=== PATIENT | male | born 1955 | race Caucasian/White ===

== ENCOUNTER 2018-09-14 05:21 | Inpatient (IN) | payer BC ==
[~2018-09-14] VITALS: Ht 182.9 cm; Wt 115.9 kg
[~2018-09-14 05:21] MED LIST: IBUP-1484 PO; LEVO175T5 PO; LISI1TAB7 PO; MULT-516 PO; VENL75TA PO
[2018-09-14] MEDS ORDERED: LACTATED RINGERS 1,000 ML IV SCH (05:58)
[2018-09-14 05:59] VITALS: BP 129/82
[2018-09-14] MEDS ORDERED: SUCCINYLCHOLINE 20 MG/ML, 10ML ONE (07:03)
[2018-09-14] MEDS ORDERED: MIDAZOLAM 1 MG/ML, 2ML ONE (07:03)
[2018-09-14] MEDS ORDERED: PROPOFOL 10 MG/ML, 20ML ONE ×2 (07:03)
[2018-09-14] MEDS ORDERED: FENTANYL PF 250 MCG/5ML ONE (07:03)
[2018-09-14] MEDS ORDERED: ROCURONIUM 10MG/ML,5ML ONE (07:03)
[2018-09-14] MEDS ORDERED: CEFAZOLIN 1,000 MG ONE ×2 (07:04)
[2018-09-14] MEDS ORDERED: PHENYLEPHRINE 10 MG/ML ONE (07:10)
[2018-09-14] MEDS ORDERED: EPHEDRINE 50 MG/ML, 1ML ONE (07:12)
[2018-09-14] MEDS ORDERED: THROMBIN 5,000 UNIT VIAL TP ONE (07:19)
[2018-09-14] MEDS ORDERED: BUPIVACAINE/PF 0.25% ONE (07:19)
[2018-09-14] MEDS ORDERED: LIDOCAINE 1%-EPI 1:100K, 30ML ONE (07:20)
[2018-09-14] MEDS ORDERED: VANCOMYCIN 1,000 MG ONE (07:20)
[2018-09-14] MEDS ORDERED: EPINEPHRINE 1 MG/ML, 1ML ONE (07:20)
[2018-09-14] MEDS ORDERED: LIDOCAINE/PF 0.5% ,50ML ONE (07:48)
[2018-09-14] MEDS ORDERED: GABAPENTIN 300 MG CAPSULE ONE (07:50)
[2018-09-14] MEDS ORDERED: FAMOTIDINE 20 MG TABLET ONE (07:50)
[2018-09-14] MEDS ORDERED: OXYcodone IR 5MG TABLET ONE (07:50)
[2018-09-14] MEDS ORDERED: ACETAMINOPHEN 500 MG TABLET ONE (07:50)
[2018-09-14] MEDS ORDERED: ACETAMINOPHEN 500 MG TABLET PO ONE (08:00)
[2018-09-14] MEDS ORDERED: GABAPENTIN 300 MG CAPSULE PO ONE (08:00)
[2018-09-14] MEDS ORDERED: OXYcodone IR 5MG TABLET PO ONE (08:00)
[2018-09-14] MEDS ORDERED: FAMOTIDINE 20 MG TABLET PO ONE (08:00)
[2018-09-14] MEDS ORDERED: DEXAMETHASONE 4 MG/ML, 1ML ONE ×2 (08:22)
[2018-09-14] MEDS ORDERED: HYDROmorphone 2 MG/ML, 1ML IVPush PRN (09:00)
[2018-09-14] MEDS ORDERED: FENTANYL PF 100 MCG/2ML IV PRN (09:00)
[2018-09-14] MEDS ORDERED: PROMETHAZINE 25 MG/ML, 1ML IV PRN (09:00)
[2018-09-14] MEDS ORDERED: OXYcodone 5 MG/5 ML ORAL.SOL UDC PO PRN (09:00)
[2018-09-14] MEDS ORDERED: MEPERIDINE/PF 25MG/0.5ML IVPush PRN (09:00)
[2018-09-14] MEDS ORDERED: GLYCOPYRROLATE 0.4 MG/2 ML, 2ML ONE (09:16)
[2018-09-14] MEDS ORDERED: FENTANYL PF 100 MCG/2ML ONE (10:17)
[2018-09-14] MEDS ORDERED: ONDANSETRON 2MG/ML, 2ML ONE (10:59)
[2018-09-14] MEDS ORDERED: NEOSTIGMINE 1 MG/ML, 10ML ONE (11:27)
[2018-09-14] MEDS ORDERED: METHOCARBAMOL 1,000 MG in DEXTROSE 5% 100 ML IV ONE (12:00)
[2018-09-14] MEDS ORDERED: PHARMACY MAY ADJ FOR RENAL FX MC PRN (12:00)
[2018-09-14] MEDS ORDERED: OXYcodone 5 MG/5 ML ORAL.SOL UDC ONE (12:40)
[2018-09-14 13:30] VITALS: BP 117/73
[2018-09-14] MEDS ORDERED: BISACODYL 10 MG SUPP PR PRN (14:00)
[2018-09-14] MEDS ORDERED: PROMETHAZINE 25 MG/ML, 1ML IM PRN (14:00)
[2018-09-14] MEDS ORDERED: MAGNESIUM HYDROXIDE 8%, 30ML UDC PO PRN (14:00)
[2018-09-14] MEDS ORDERED: morphine SULFATE 10 MG/ML, 1ML IV PRN (14:00)
[2018-09-14] MEDS ORDERED: HYDROcodone/APAP 5/325 TABLET PO PRN (14:00)
[2018-09-14] MEDS ORDERED: ONDANSETRON 2MG/ML, 2ML IV PRN (14:00)
[2018-09-14] MEDS: D5%-0.9% NACL+KCL 20MEQ 1,000 ML IV SCH (14:30)
[2018-09-14] MEDS: CEFAZOLIN PMX 1GM/50ML 50 ML IVPB SCH (16:22)
[2018-09-14 19:45] VITALS: BP_SYST 119; BP_SYST 148; BP_DIAS 71; BP_DIAS 87
[2018-09-14] MEDS ORDERED: METHOCARBAMOL 750 MG in DEXTROSE 5% 100 ML IV PRN (20:00)
[2018-09-14] MEDS: METHOCARBAMOL 750 MG in DEXTROSE 5% 100 ML IV SCH (20:21)
[2018-09-14] MEDS: SENNA/DOCUSATE TABLET PO SCH (20:22)
[2018-09-14] MEDS: VENLAFAXINE 37.5MG TABLET PO SCH (20:22)
[2018-09-15] MEDS: CEFAZOLIN PMX 1GM/50ML 50 ML IVPB SCH (00:10)
[2018-09-15 01:12] VITALS: BP 118/77
[2018-09-15] MEDS: METHOCARBAMOL 750 MG in DEXTROSE 5% 100 ML IV SCH ×3 (04:58→23:04)
[2018-09-15] MEDS: LEVOTHYROXINE 175 MCG TABLET PO SCH (06:00)
[2018-09-15 06:31] LABS: BASOPHILS # (AUTO) 0.01 x10^3/uL (0-0.1); BASOPHILS % (AUTO) 0 % (0-1); EOSINOPHILS # (AUTO) 0.02 x10^3/uL (0-0.4); EOSINOPHILS % (AUTO) 0 % (1-7); LYMPHOCYTES # (AUTO) 0.82 x10^3/uL (1-3.4); LYMPHOCYTES % (AUTO) 8 % (22-44); MD NO; MEAN CORPUSCULAR HEMOGLOBIN 30.6 pg (27.5-34.5); MEAN CORPUSCULAR HGB CONC 33.3 g/dL (33.2-36.2); MEAN PLATELET VOLUME 8.5 fL (7.4-10.4); MONOCYTES # (AUTO) 0.75 x10^3/uL (0.2-0.8); MONOCYTES % (AUTO) 7 % (2-9); NEUTROPHILS # (AUTO) 8.48 x10^3/uL (1.8-6.8); NEUTROPHILS % (AUTO) 84 % (42-75); PLATELET COUNT 150 x10^3/uL (130-400); RED BLOOD COUNT 4.19 x10^6/uL (4.38-5.82); RED CELL DISTRIBUTION WIDTH 13.1 % (9.4-14.8)
[2018-09-15] MEDS ORDERED: LEVOTHYROXINE 100 MCG TABLET ONE (06:33)
[2018-09-15] MEDS ORDERED: LEVOTHYROXINE 75 MCG TABLET ONE (06:33)
[2018-09-15 06:41] LABS: CHLORIDE 104 mmol/L (98-107)
[2018-09-15 06:46] LABS: ALBUMIN 3.1 g/dL (3.4-5.0); ANION GAP 6 mmol/L (5-15); CALCIUM 8.4 mg/dL (8.5-10.1); CREATININE 0.89 mg/dL (0.7-1.3)
[2018-09-15 08:10] VITALS: BP 120/63
[2018-09-15] MEDS: LISINOPRIL 20 MG TABLET PO SCH (09:00)
[2018-09-15] MEDS: D5%-0.9% NACL+KCL 20MEQ 1,000 ML IV SCH ×3 (10:00→20:00)
[2018-09-15] MEDS: HYDROCHLOROTHIAZIDE 25 MG TABLET PO SCH (10:07)
[2018-09-15] MEDS: SENNA/DOCUSATE TABLET PO SCH ×2 (10:07→20:23)
[2018-09-15] MEDS: VENLAFAXINE 37.5MG TABLET PO SCH ×2 (10:11→20:22)
[2018-09-15 12:20] VITALS: BP 118/65
[2018-09-15] MEDS: HYDROcodone/APAP 10/325 MG TABLET PO PRN ×2 (12:30→16:37)
[2018-09-15 19:45] VITALS: BP 100/62
[2018-09-16 02:34] VITALS: BP 132/81
[2018-09-16] MEDS: HYDROcodone/APAP 10/325 MG TABLET PO PRN ×3 (02:59→12:43)
[2018-09-16 05:47] LABS: BASOPHILS # (AUTO) 0.03 x10^3/uL (0-0.1); BASOPHILS % (AUTO) 0 % (0-1); EOSINOPHILS # (AUTO) 0.03 x10^3/uL (0-0.4); EOSINOPHILS % (AUTO) 0 % (1-7); LYMPHOCYTES # (AUTO) 1.01 x10^3/uL (1-3.4); LYMPHOCYTES % (AUTO) 13 % (22-44); MD NO; MEAN CORPUSCULAR HEMOGLOBIN 31.5 pg (27.5-34.5); MEAN CORPUSCULAR HGB CONC 34.5 g/dL (33.2-36.2); MEAN CORPUSCULAR VOLUME 91.3 fL (81-97); MEAN PLATELET VOLUME 8.7 fL (7.4-10.4); MONOCYTES # (AUTO) 0.68 x10^3/uL (0.2-0.8); MONOCYTES % (AUTO) 8 % (2-9); NEUTROPHILS % (AUTO) 78 % (42-75); PLATELET COUNT 128 x10^3/uL (130-400); RED BLOOD COUNT 3.92 x10^6/uL (4.38-5.82); RED CELL DISTRIBUTION WIDTH 13.3 % (9.4-14.8)
[2018-09-16 05:54] LABS: CHLORIDE 102 mmol/L (98-107)
[2018-09-16 05:59] LABS: ALBUMIN 3.1 g/dL (3.4-5.0); ANION GAP 5 mmol/L (5-15); CALCIUM 8.4 mg/dL (8.5-10.1); CREATININE 1.03 mg/dL (0.7-1.3)
[2018-09-16] MEDS: LEVOTHYROXINE 175 MCG TABLET PO SCH (06:00)
[2018-09-16] MEDS: D5%-0.9% NACL+KCL 20MEQ 1,000 ML IV SCH (06:00)
[2018-09-16] MEDS ORDERED: LEVOTHYROXINE 75 MCG TABLET ONE (06:25)
[2018-09-16] MEDS ORDERED: LEVOTHYROXINE 100 MCG TABLET ONE (06:25)
[2018-09-16] MEDS: METHOCARBAMOL 750 MG in DEXTROSE 5% 100 ML IV SCH (06:27)
[2018-09-16 06:57] VITALS: BP 140/76
[2018-09-16] MEDS: LISINOPRIL 20 MG TABLET PO SCH (09:00)
[2018-09-16] MEDS: HYDROCHLOROTHIAZIDE 25 MG TABLET PO SCH (09:00)
[2018-09-16] MEDS: SENNA/DOCUSATE TABLET PO SCH (09:10)
[2018-09-16] MEDS: VENLAFAXINE 37.5MG TABLET PO SCH (09:10)
[2018-09-16 09:12] VITALS: BP 103/53
[2018-09-16] MEDS ORDERED: METH750T87 PO (12:28)
[2018-09-16] MEDS ORDERED: HYDR-3307 PO (12:29)
[2018-09-16 12:35] VITALS: BP 126/72
[2018-09-16] MEDS ORDERED: METHOCARBAMOL 750 MG TABLET PO SCH ×2 (14:00→20:00)
== END 2018-09-16 13:21 | disposition home or self-care (01) | DRG 460 ==
LOC: ORIP 05:21 → 4NOR 13:02 → DCLOUNGE 09-16 13:21
PROVIDERS: ADMIT Orthopaedic Surgery Orthopaedic Surgery of the Spine; ATTEND Orthopaedic Surgery Orthopaedic Surgery of the Spine
PROC: 01NB0ZZ Release Lumbar Nerve, Open Approach (ICD-10-PCS; 2018-09-14)
PROC: 0SG00K1 Fusion of Lumbar Vertebral Joint with Nonautologous Tissue Substitute, Posterior Approach, Posterior Column, Open Approach (ICD-10-PCS; principal; 2018-09-14 07:30)
DX: M48.07 Spinal stenosis, lumbosacral region (principal); M54.16 Radiculopathy, lumbar region; E03.9 Hypothyroidism, unspecified; I10 Essential (primary) hypertension; F32.9 Major depressive disorder, single episode, unspecified; M43.16 Spondylolisthesis, lumbar region
CPT/HCPCS: 36415; 72100; 80048; 82040; 85025; C1713; G0378; J0171; J0690; J1100; J2001; J2250; J2270; J2405; J2704; J2710; J3010; J3370; J3490; J0330; J2370; J2800; J3480; J7120